=== PATIENT | female | born 1995 | race Caucasian/White ===

== ENCOUNTER 2019-09-21 14:15 | Outpatient (RCR) | payer BC, SELFPAY ==
[2019-09-21] MEDS: RHO(D) IMMUNE GLOBULIN 300 MCG SYRINGE IM (17:28)
== END 2019-12-20 23:59 | disposition home or self-care (01) ==
LOC: ANHLAB 14:15
PROVIDERS: Visit Provider Advanced Practice Midwife
DX: O20.0 Threatened abortion (principal); Z29.13 Encounter for prophylactic Rho(D) immune globulin; O36.0990 Maternal care for other rhesus isoimmunization, unspecified trimester, not applicable or unspecified; Z3A.00 Weeks of gestation of pregnancy not specified
CPT/HCPCS: 36415; 90384; 96372; J2790

== ENCOUNTER 2019-10-14 01:32 | Day surgery (SDC) | payer BC, SELFPAY ==
[2019-10-09 17:19] VITALS: BMI 29.9
[2019-10-14 10:02] VITALS: BP 117/64; PULSE 64; RESP 14; TEMP 36.8; O2SAT 100; BMI 29.7
[2019-10-14] MEDS: LACTATED RINGERS 1,000 ML 30 ML IV CONT (10:08)
--- NOTE | 2019-10-14 10:15 | WPDHPUPDATE1 ---
History and Physical Update Update Date/Time: 10/14/19 10:15 History and Physical has been reviewed, including an updated exam of the patient. There are NO changes in the patient's condition. Risks, benefits, and alternatives have been discussed and questions answered. Patient agrees to proceed with procedure.
--- NOTE | 2019-10-14 10:16 | P.PNAN_ITS ---
Anes - Initial Pre Proc Eval Procedure: Operation Date: 10/14/19 10:45 Proposed Procedures p Suction Dilation Curettage - Kamran Marcos MD Date/Time: 10/14/19 10:16 Surgeon: Kamran Marcos MD Pre Op Diagnosis: Missed AB Patient Data Age: 24 Gender: F Height: 5 ft 5 in Weight: 81 kg Last Vital Signs Temp 36.8 C 10/14/19 10:02 Pulse 64 10/14/19 10:02 Resp 14 10/14/19 10:02 BP 117/64 10/14/19 10:02 Pulse Ox 100 10/14/19 10:02 Allergies Allergy/AdvReac Type Severity Reaction Status Date / Time No Known Allergies Allergy Verified 10/14/19 09:39 Patient hx anesthesia problems: none Family hx anesthesia problems: none [facility] Past Medical History Medical History (Updated 10/14/19 @ 10:16 by Peña Laboy MD) Missed ab Overweight Anes - Eval Final PreProcedure Day of Procedure 10/14/19 10:16 Patient weight: overweight Heart: regular rate and rhythm Lungs: clear to auscultation Airway: Mallampati scale class II Neurological: alert and oriented Last oral intake: >/= 8 hours ASA classification: II Emergent: no Anesthetic plan: proceed Anesthesia type and monitoring: general GIVS and standard monitoring Informed Consent: The patient's anesthetic plan and its attendant risks and benefits were discussed with the patient/family/POA. Questions were solicited and answers provided to the satisfaction of the patient/family/POA.
[2019-10-14] MEDS: IBUPROFEN IV 800 MG/200 ML 800 MG/200 ML BAG 400 MG IVPB (10:25)
[2019-10-14 10:53] VITALS: BP 94/49; PULSE 70; RESP 20; O2SAT 98
--- NOTE | 2019-10-14 11:11 | P.OP_ITS ---
Procedure Note - Detailed Date of procedure: 10/14/19 Pre-op diagnosis: Missed AB Post-op diagnosis: same Procedure performed: Suction D&C Description of procedure: The patient was taken the operating room. She has prepped and draped in dorsal lithotomy position after induction of mac anesthesia. A speculum was placed in the vagina. The cervix was grasped with a tenaculum. The cervix was injected at 3 and 9:00 a.m. with 1% lidocaine. The cervix was dilated up to 8 mm using Eduardo dilators. An 8 curved plastic suction curette was then applied to the intrauterine cavity. All of the surfaces in the intrauterine cavity were curettage under VAC. A sharp medium-size curette was then used to curettage all the surfaces to confirmed the removal of all the products conception. When all surfaces for bleed to be clean the curette was r emoved. The suction curette was then reapplied to remove all the debris. The procedure was terminated. The tenaculum was removed. The speculum was removed. The patient tolerated the procedure well. She was taken recovery room in stable condition. Anesthesia: MAC Surgeon: Kamran Marcos MD Estimated blood loss (mL): 25 Drains: No Packing: No Pathology: yes Complications: No immediate complications Condition: stable Disposition: PACU Findings: Normal vulva vagina and cervix. The moderate amounts of products conception. 8 cm uterus.
--- NOTE | 2019-10-14 11:19 | SUR.PHASEII ---
1100: Patient stated she had some spotting and received Rhogam at the [facility] a few weeks ago. RN called OB since she couldn't find the documentation and they are sending a copy to us. Dr. Marcos is aware and said patient doesn't need another dose at this time.
[2019-10-14 11:20] VITALS: BP 97/56; PULSE 59
[2019-10-14 11:40] VITALS: BP 99/42; PULSE 55
== END 2019-10-14 11:50 | disposition home or self-care (01) ==
PROVIDERS: Visit Provider Obstetrics & Gynecology
PROC: (CPT 59820; principal; 2019-10-14 10:45)
DX: O02.1 Missed abortion (principal)
CPT/HCPCS: 59820; 36415; 86850; 86880; 86902; 88305; A9270; J1741; J2250; J2405; J2704; J7120

== ENCOUNTER 2022-01-04 14:12 | Outpatient (CLI) | payer OTHER, SELFPAY ==
[2022-01-04] MEDS: RHO(D) IMMUNE GLOBULIN 300 MCG/2 ML SYRINGE IM (18:44)
== END 2022-01-04 14:13 | disposition home or self-care (01) ==
LOC: ANHLAB 14:17
PROVIDERS: PCP Internal Medicine; Visit Provider Obstetrics & Gynecology
DX: O20.0 Threatened abortion (principal)
CPT/HCPCS: 36415; 85461; 90384; 96372; J2790

== ENCOUNTER 2022-02-23 19:25 | Outpatient (CLI) | payer OTHER, SELFPAY | END 2022-02-23 20:03 | disposition home or self-care (01) | LOC: ANHOBOP 19:29 → ANHOBPP 19:33 | PROVIDERS: PCP Internal Medicine; Visit Provider Obstetrics & Gynecology | DX: O41.8X90 Other specified disorders of amniotic fluid and membranes, unspecified trimester, not applicable or unspecified (principal); Z3A.00 Weeks of gestation of pregnancy not specified | CPT/HCPCS: 84112; 99199 ==

== ENCOUNTER 2022-04-20 18:53 | Outpatient (RCR) | payer OTHER, SELFPAY | END 2022-06-06 09:22 | disposition home or self-care (01) | LOC: ANHOBOP 18:53 | PROVIDERS: PCP Internal Medicine; Visit Provider Obstetrics & Gynecology | DX: O36.8190 Decreased fetal movements, unspecified trimester, not applicable or unspecified (principal); Z3A.00 Weeks of gestation of pregnancy not specified | CPT/HCPCS: 99199 ==

== ENCOUNTER 2022-05-07 17:57 | Observation (INO) | payer OTHER, SELFPAY ==
[2022-05-07 18:24] VITALS: BP 111/61; PULSE 86
[2022-05-07 18:34] LABS: Appearance Urine Clear (Clear); Bilirubin Urine Negative (Negative); Color Urine Yellow (Yellow); Glucose Urine UA Negative (Negative); Ketones Urine Trace mg/dL (Negative); Leukocyte Esterase Ur Negative LEU/UL (Negative); Nitrate Urine Negative (Negative); Protein Urine Negative (Negative); Specific Grav Ur >= 1.030 (1.001-1.035); Urobilinogen Urine 0.2 mg/dL (<2.0); pH Urine 5.5 (5.0-9.0)
[2022-05-07 18:41] LABS: Mucus Urine Rare /lpf; Squamous Epithelial Cell Urine Rare /hpf (Few)
[2022-05-07 18:50] LABS: Add Urine Microscopic? YES; Blood Urine Trace-Intact (Negative)
[2022-05-07 19:00] VITALS: BP 123/74; PULSE 89
--- NOTE | 2022-05-07 19:13 | PC.NURSE ---
Pt unsure if she wants to receive the terbutaline. Requested SVE first. Discussed cervix is closed and thick. Pt is going to discuss medication with her S.O.
--- NOTE | 2022-05-29 11:39 | P.PNOB_ITS ---
OB - Triage/Final Diagnosis Visit Information Comments/Additional reasons for admission: I have assessed the risk for this patient, Yojana Garcia, and determined that she would benefit from observation care. Evaluation Laboratory results: Laboratory Tests 05/07/22 18:26 Urine Color Yellow Urine Appearance Clear Urine pH 5.5 Ur Specific [place] >= 1.030 Urine Protein Negative Urine Glucose (UA) Negative Urine Ketones Trace Ur Blood (Man) Trace-intact Urine Nitrate Negative Urine Bilirubin Negative Urine Urobilinogen 0.2 Leukocyte Esterase Rfl Negative Urine RBC 3-5 H Urine WBC 4-6 H Ur Squamous Epith Cells Rare Urine Mucus Rare Final Diagnosis (1) Cramping affecting , antepartum: Code(s): O26.899 - Other specified related conditions, unspecified trimester; R10.9 - Unspecified abdominal pain Status: Acute
== END 2022-05-07 20:30 | disposition home or self-care (01) ==
PROVIDERS: Admitting Provider Obstetrics & Gynecology; PCP Internal Medicine; Visit Provider Obstetrics & Gynecology
DX: O26.892 Other specified pregnancy related conditions, second trimester (principal); R10.9 Unspecified abdominal pain; Z87.440 Personal history of urinary (tract) infections; O26.852 Spotting complicating pregnancy, second trimester; Z3A.26 26 weeks gestation of pregnancy
CPT/HCPCS: 81001; G0378; G0379

== ENCOUNTER 2022-05-17 11:54 | Outpatient (RCR) | payer BC, SELFPAY ==
[2022-05-17] MEDS: RHO(D) IMMUNE GLOBULIN 300 MCG/2 ML SYRINGE IM (18:23)
== END 2022-08-15 23:59 | disposition home or self-care (01) ==
LOC: ANHLAB 11:54
PROVIDERS: PCP Internal Medicine; Visit Provider Obstetrics & Gynecology
DX: Z29.13 Encounter for prophylactic Rho(D) immune globulin (principal); O36.0190 Maternal care for anti-D [Rh] antibodies, unspecified trimester, not applicable or unspecified; Z3A.00 Weeks of gestation of pregnancy not specified
CPT/HCPCS: 36415; 85461; 90384; 96372; J2790

== ENCOUNTER 2022-06-28 18:18 | Outpatient (CLI) | payer BC, SELFPAY ==
[2022-06-28] VITALS (11 sets, daily range): BP systolic 118; BP diastolic 62; PULSE 73–121; O2SAT 99–100
[2022-06-28] MEDS: TERBUTALINE SULFATE 1 MG/ML VIAL 0.25 MG SUB-Q (19:35)
--- NOTE | 2022-06-28 19:50 | PC.NURSE ---
SVE closed and posterior
[2022-06-28 19:52] LABS: Add Urine Microscopic? YES; Appearance Urine Cloudy (Clear); Bacteria Urine Trace /hpf; Bilirubin Urine Negative (Negative); Blood Urine Negative (Negative); Color Urine Yellow (Yellow); Glucose Urine UA Negative (Negative); Ketones Urine Negative (Negative); Leukocyte Esterase Ur Negative LEU/UL (Negative); Mucus Urine Rare /lpf; Nitrate Urine Negative (Negative); Protein Urine Negative (Negative); Specific Grav Ur 1.005 (1.001-1.035); Squamous Epithelial Cell Urine Occasional /hpf (Few); Urobilinogen Urine Negative mg/dL (<2.0); WBC Urine 0-3 /hpf
--- NOTE | 2022-06-28 20:23 | PC.NURSE ---
1916 Dr. Angelica odom 1918 Dr. Dominguez responded to oliva, informed of admission for DFM, tracing reviewed, contractions noted every 5-7 min not felt by patient, orders received for SVE, terbutaline X 1 dose, and UA. Will cont. to monitor and call with results. 2013 Dr. Angelica odom 2017 Dr. Dominguez responded to oliva, lab results reviewed, SVE reviewed closed and posterior, informed of no contraction noted on tracing. Orders recived to DC home with instruction to return to L&D and to keep appointment Saturday
== END 2022-06-28 22:00 | disposition home or self-care (01) ==
LOC: ANHOBOP 07-04 10:53 → ANHLDR 07-04 10:53
PROVIDERS: PCP Internal Medicine; Visit Provider Obstetrics & Gynecology
DX: O36.8130 Decreased fetal movements, third trimester, not applicable or unspecified (principal); Z3A.34 34 weeks gestation of pregnancy
CPT/HCPCS: 59025; 81001; 99199; J3105

== ENCOUNTER 2022-08-08 17:25 | Inpatient (IN) | payer BC, SELFPAY ==
[2022-08-08] VITALS (13 sets, daily range): BP systolic 124–153; BP diastolic 49–84; PULSE 66–87; TEMP 36.6–37.4; BMI 38.5
--- NOTE | 2022-08-08 17:43 | LDADM ---
This patient, Yojana Garcia, was admitted to Labor/Delivery/Recovery 103 on 08/08/22 at 17:25. Plans for labor, pain management and were discussed with patient. Patient/family oriented to hospital policies and general routines including ID bracelet, bed and alarms, visiting hours, pain management, procedures, bathroom and other care routines, personal items, smoking policy, room service/diet and guest tray routines, infant security routines, and visiting hours. Patient/Family are encouraged to report perceived risks to care and to ask questions if they do not understand what they are told or what they should do. See OBIX for further documentation.
[2022-08-08 18:30] LABS: Basophils Percent Auto 0.2 % (0.2-1.2); Eosinophils Percent Auto 0.3 % (0-4.4); Hematocrit 37.4 % (37.0-47.0); Hemoglobin 12.6 g/dL (12.0-15.0); Immature Granulocyte Absolute 0.05 K/mm3 (0.00-0.031); Immature Granulocyte Percent A 0.4 % (0-0.5); Lymphocytes Absolute Auto 1.88 K/mm3 (0.9-3.2); Lymphocytes Percent Auto 14.1 % (18.3-44.2); Mean Corpuscular HGB Conc 33.7 g/dl (32-36); Mean Corpuscular Hemoglobin 28.4 pg (26-34); Mean Corpuscular Volume 84.2 fl (80-100); Monocytes Absolute Auto 0.7 K/mm3 (0.1-0.6); Monocytes Percent Auto 5.3 % (2.6-8.5); Neutrophils Absolute Auto 10.6 K/mm3 (1.3-6.7); Neutrophils Percent Auto 79.7 % (45.5-73.1); Platelet Count Result 211 k/mm3 (150-375); Red Blood Count 4.44 M/mm3 (4.2-5.4); Red Cell Distribution Width 14.8 % (11.5-14.5); White Blood Count 13.3 K/mm3 (4.5-10.0)
[2022-08-08] MEDS: DINOPROSTONE 10 MG VAG INSERT VAGINAL (18:35)
[2022-08-09] VITALS (99 sets, daily range): BP systolic 77–153; BP diastolic 42–86; PULSE 55–139; RESP 16; TEMP 36.7–38.1; O2SAT 89–100
--- NOTE | 2022-08-09 05:34 | WPDANESEPP ---
Anes - Eval Pre Procedure Procedure: labor epidural Date/Time: 08/09/22 05:34 Surgeon: eleni Preop Diagnosis: pain during labor Pre Op Diagnosis: iol Patient Data Age: 26 Gender: F Height: 1.65 m Weight: 105 kg Last Vital Signs Temp 36.7 C 08/09/22 05:30 Pulse 67 08/09/22 04:13 BP 129/75 08/09/22 04:13 O2 Del Method Room Air 08/08/22 17:42 Allergies Allergy/AdvReac Type Severity Reaction Status Date / Time No Known Allergies Allergy Verified 07/11/22 13:40 Home Medications Medication Instructions Recorded Confirmed Type prenat.vits,sridevi,ead-sisq-geuqg 1 tablet PO HS 07/11/22 07/11/22 History Laboratory Tests 08/08/22 08/08/22 08/08/22 17:35 17:35 17:35 WBC 13.3 K/mm3 H K/mm3 (4.5-10.0) RBC 4.44 M/mm3 M/mm3 (4.2-5.4) Hgb 12.6 g/dL g/dL (12.0-15.0) Hct 37.4 % % (37.0-47.0) MCV 84.2 fl fl (80-100) MCH 28.4 pg pg (26-34) MCHC 33.7 g/dl g/dl (32-36) RDW 14.8 % H % (11.5-14.5) Plt Count 211 k/mm3 k/mm3 (150-375) MPV 11.0 fl H fl (7.4-10.4) Immature Gran % (Auto) 0.4 % % (0-0.5) Neut % (Auto) 79.7 % H % (45.5-73.1) Lymph % (Auto) 14.1 % L % (18.3-44.2) Dawson % (Auto) 5.3 % % (2.6-8.5) Eos % (Auto) 0.3 % % (0-4.4) Baso % (Auto) 0.2 % % (0.2-1.2) Lymph # (Auto) 1.88 K/mm3 K/mm3 (0.9-3.2) Dawson # (Auto) 0.7 K/mm3 H K/mm3 (0.1-0.6) Eos # (Auto) 0.0 K/mm3 K/mm3 (0-0.3) Baso # (Auto) 0.0 K/mm3 K/mm3 (0.0-0.1) Abs Immat Gran (auto) 0.05 K/mm3 H K/mm3 (0.00-0.031) Absolute Neuts (auto) 10.6 K/mm3 H K/mm3 (1.3-6.7) Absolute Nucleated RBC 0.0 K/mm3 K/mm3 (0.0-0.012) Nucleated RBC % 0.0 % % (0.0-0.2) RPR Pending Blood Type O Negative Antibody Screen Negative Patient hx anesthesia problems: none Family hx anesthesia problems: none Results Review: All pre-operative results and documents have been reviewed as part of the pre-operative evaluation. [facility] Past Medical History Medical History (Updated 08/09/22 @ 05:35 by Chelo Palmer CRNA) Intrauterine Missed ab Obesity Overweight Family History Family History (Updated 07/11/22 @ 13:43 by Richelle Land RN) Mother Vocal cord cancer Thyroid cancer Breast cancer in female Grandparent High cholesterol Hypertension Father Hypertension Social History Social History Smoking status: Never smoker Substance use: never Lack of Transportation: No Lack of Food: Never True Current Housing: I Have Housing Concerned About Future Housing: No Difficulty Paying Gas/Electric Bills: No Difficulty Paying for Meds: No Currently Unemployed: No Education: Associate Degree Difficulty w/ Childcare or Family Care: No Spiritual care concerns: No Exam Day of Procedure 08/09/22 05:34
[2022-08-09] MEDS: LACTATED RINGERS 1,000 ML 125 ML IV CONT ×2 (05:47→07:58)
[2022-08-09] MEDS: AMPICILLIN 2 GM/NS 100 ML 2 GM/100 ML BAG IVPB (05:48)
[2022-08-09] MEDS: OXYTOCIN 30 UNITS/NS 500 ML 30 UNITS/500 ML BAG 6 UNITS IV CONT (05:48)
--- NOTE | 2022-08-09 09:09 | WPDOBADMIT ---
Obstetrics - Admit Note Admission Note: record reviewed. Additions to the history and/or subsequent changes in the physical findings follow. 26 y/o G1 at 40 1/7 weeks here for induction of labor. Cervidil overnight, has been withdrawn. SROM at 0530, clear fluid. Feeling contractions, now feels better with epidural. GBS pos. AVSS NST reactive TOCO: contractions every 2-3 min ABD soft, nontender, gravid, vertex EXT nontender Cervix 5/100/-1. IUPC placed. Vertex. A: IUP at term, desiring induction of labor. GBS pos. P: Oxytocin, ampicillin. Anticipate .
[2022-08-09] MEDS: AMPICILLIN 1 GM/NS 50 ML 1 GM/50 ML BAG IVPB (09:46)
--- NOTE | 2022-08-09 12:13 | P.PCNOB_ITS ---
OB - Delivery Note Procedure Delivery date: 08/09/22 Procedure: Induction of labor with Excision of skin tag from left thigh Induction method: Per Cervidil Protocol Delivery augmentation: Pitocin Delivery monitor: External FHT, External Uterine and Internal Uterine Route of delivery: Laceration Description: Vaginal Delivery repair: vicryl (3-0) Specimen: Yes (Cord blood, skin tag) Quantitative Blood Loss (ml): 85 Anesthesia type: Epidural Disposition: PACU Complications: None Narrative: 26 y/o G1 at 40 1/7 weeks gestation who presented to the hospital for induction of labor. Cervidil was placed overnight. She had SROM with clear fluid. Cervidil was withdrawn and oxytocin was administered intravenously. She received ampicilin for GBS colonization. She received an epidural for pain control. Her labor progressed and her cervix dilated completely. She pushed with good effort and delivered the 's head to the perineum, followed by the body. A loose nuchal cord was reduced. The nose and mouth were bulb suctioned. After a delay, the cord was clamped and cut. The infant was handed off the field. Cord blood was collected. The placenta delivered spontaneously and was grossly normal in appearance. The usual 3 vessel cord was noted. A distal vaginal laceration was sustained. This was reapproximated using 3 0 Kirill ryl in the usual, running fashion. Excellent hemostasis resulted as did excellent reapproximation of the normal anatomy. Needle and instrument counts were correct. The patient was taken to recovery room in stable condition. The went to the nursery in stable condition. I was present and scrubbed for the entire delivery. Baby Date of : 08/09/22 Time of : 11:52 Weeks of gestation at delivery: 40 Infant gender: Male Weight (pounds): 6 Weight (ounces): 11 presentation: vertex position: Right Occiput Posterior Placenta delivery description: Spontaneous and Normal Configuration Cord Vessel Description: 3 Vessels, Nuchal Cord and Delayed Cord Clamping score one minute: 8 score five minutes: 9
[2022-08-09 12:14] LABS: Rapid Plasma Reagin Non-Reactive (NonReactive)
--- NOTE | 2022-08-09 12:17 | PM.OBDSVD ---
DS: Admitting Diagnosis Discharge Date 08/11/22 Admitting Diagnosis IUP at 40 1/7 weeks GBS colonization DS: Discharge Diagnosis Discharge Diagnosis (1) (normal spontaneous vaginal delivery): Code(s): O80 - Encounter for full-term uncomplicated delivery Status: Acute (2) GBS (group B Streptococcus carrier), +RV culture, currently : Code(s): O99.820 - Streptococcus B carrier state complicating Status: Acute OB - DS: Summary OB Procedures : None OB Procedures Intrapartum: Spontaneous Vag Delivery and GBS prophylaxis OB Procedures: : None Time Spent with Patient Time attestation: Total time spent providing and/or coordinating discharge services: DS: Data Data Completed and Pending Labs on day of discharge: Labs from last 24 hours 08/08/22 08/08/22 08/08/22 17:35 17:35 17:35 WBC 13.3 H RBC 4.44 Hgb 12.6 Hct 37.4 MCV 84.2 MCH 28.4 MCHC 33.7 RDW 14.8 H Plt Count 211 MPV 11.0 H Immature Gran % (Auto) 0.4 Neut % (Auto) 79.7 H Lymph % (Auto) 14.1 L [place] % (Auto) 5.3 Eos % (Auto) 0.3 Baso % (Auto) 0.2 Lymph # (Auto) 1.88 [place] # (Auto) 0.7 H Eos # (Auto) 0.0 Baso # (Auto) 0.0 Abs Immat Gran (auto) 0.05 H Absolute Neuts (auto) 10.6 H Absolute Nucleated RBC 0.0 Nucleated RBC % 0.0 RPR Non-reactive Blood Type O Negative Antibody Screen Negative Discharge Plan Discharge Attending physician on discharge: Pepe Dominguez Discharging Clinician: Pepe Dominguez Patient Disposition: Hospice - Home Activity: pelvic rest Diet: regular Discharge Instructions: Education: Mom and Baby Guide Given to: Mother Follow-Up: Call your delivering provider's office for an appointment to be seen in: 6 Week Mom and baby should come to the [facility] for the follow-up appointment. Appointment Date/Time: August 13, 2022 at 11:00 am What to expect at your follow-up visit: Blood Pressure Check Physical Assessment Call [phone] if you are unable to keep your appointment time. BREAST CARE: * Wear a snug supportive bra. * For engorgement discomfort: Breast Feeding: * Apply warm moist washcloths * Express milk as needed to relieve engorgement * Wear loose clothing Bottle Feeding: * May apply ice packs * For sore nipples: * Identify correct latch-on * Apply warm moist washcloths before and after nursing * Air dry nipples after nursing * May apply Lansinoh cream to nipples EPISIOTOMY/PERINEAL CARE: * Until bleeding stops, use your alvina bottle after urinating * Change your pad frequently throughout the day * You may take sitz baths several times a day (fill your bathtub with warm water and soak for 20 minutes.) Do NOT bathe in the water * No tub baths until seen by your physician - You may shower ACTIVITY: * Rest as much as possible. * Do not exercise or lift anything heavier than your baby (such as laundry or other children.) * Avoid stairs or driving as much as possible. * Do not put anything into the vagina. No douching, tampons, or sexual activity until seen by physician. NOTIFY PHYSICIAN IF YOU HAVE ANY QUESTIONS OR IF ANY OF THE FOLLOWING SYMPTOMS OCCUR: * If your episiotomy or incision becomes red, swollen, or more painful than what you have experienced in the hospital. * If your vaginal bleeding becomes foul smelling. * If your vaginal bleeding becomes more heavy than a period or if your bleeding changes from pink to bright red. However, you may pass an occasional walnut-sized clot once or twice for the first week . * If you experience a sharp, shooting pain in you calves. * If you discover a hard, reddened area on your breast or if you experience flu-like symptoms. DIET: * Eat regular, well-balanced meals. * Drink plenty of fluids daily. If breas
--- NOTE | 2022-08-09 14:24 | OBPPTRN ---
Patient transferred to post room #286 via wheelchair. Support person present. Oriented to unit, room, information board, rooming in, admission packet and security measures. Patient verbalizes understanding.
[2022-08-09] MEDS: ACETAMINOPHEN 325 MG TABLET 650 MG PO ×2 (15:11→21:12)
--- NOTE | 2022-08-09 15:30 | PC.NURSE ---
[id number] Introductions were made as patient is holding infant skin to skin in her labor room 103. is sleepy and reluctant. Mother works well with her with encouragement and education. Encouraged understanding of the benefits of skin to skin (unwrapping infant and placing vertically on her chest), responsive feeding and how to watch for early feeding signs, frequency of feeding on demand about every 8-12 times in 24 hours (every 2-3 hours), milk production, hand expression, signs of adequate intake/output and how to record on the feeding sheet. Reviewed good handwashing when or touching the breast/nipples to prevent infection. Mother demonstrates learning of hand expression. 1/2 teaspoon of the first milk was placed at 's mouth so it could be lapped up from the spoon. Mother voiced understanding of responsive feedings, stimulating with skin to skin, hand expressed colostrum, massage touch, talking to to encourage if it has been 2 -3 hours since the start of the last , to call if does not latch or there is discomfort with . Reported to the nursery RN. [phone] Mother works well with her with encouragement and education. Encouraged understanding of the benefits of skin to skin (unwrapping infant and placing vertically on her chest), responsive feeding and how to watch for early feeding signs, frequency of feeding on demand about every 8-12 times in 24 hours (every 2-3 hours), reviewed laid-back positioning, hand expression and encouraging infant to crawl to the breast. Infant crawls to the breast but doesn't attempt to latch yet. Worked with mother on the skill of hand expression and a few drops were fed to her infant. remains skin to skin with mother. Discussed signs of adequate intake/output and what is being assessed using the pie demonstration. Mother voiced understanding of responsive feedings, stimulating with skin to skin, hand expressed colostrum, massage touch, changing position, talking to infant to encourage if it has been 2 -3 hours since the start of the last , to call if infant does not latch or there is discomfort with . Primary RN is present and reported to.
[2022-08-09] MEDS: DOCUSATE SODIUM 100 MG CAPSULE PO (16:41)
[2022-08-10 05:36] LABS: Hematocrit 34.9 % (37.0-47.0); Hemoglobin 11.6 g/dL (12.0-15.0)
[2022-08-10 08:30] VITALS: BP 119/70; PULSE 82; RESP 16; TEMP 37.1; O2SAT 100
[2022-08-10 09:00] VITALS: PULSE 82; RESP 16; O2SAT 100
--- NOTE | 2022-08-10 09:03 | PM.OBPNVD ---
OB - PN: Subj Subjective Date/time seen: 08/10/22 09:03 Narrative: Pain OK. Would like circumcision for son. OB - PN: Obj Data Labs 08/10/22 04:48 Labs: Laboratory Results - last 24 hr 08/08/22 08/10/22 17:35 04:48 Hgb 11.6 L Hct 34.9 L RPR Non-reactive OB - PN A/P Plan Comments: A: PPD#1, doing well. P: Reviewed circ. Routine care. Exam Psych: Other: AVSS ABD soft, nontender, fundus firm EXT nontender
--- NOTE | 2022-08-10 09:14 | PC.NURSE ---
[id number] Consulted with patient to assess goal, needs and her experience so far. Mother states was crying last night and she bottle fed formula. Encouraged skin to skin, changing positioning, massage touch to stimulate infant to wake and feed. Mother states she has difficulty being assertive with her infant to wake and she doesn't like for the baby to cry. Mother's goals stated are to pump and feed her baby the bottle if her doesn't latch to the breast. Encouraged understanding of the benefits of skin to skin (unwrapping and placing vertically on her chest), responsive feeding and how to watch for early feeding signs, frequency of feeding on demand or pumping about every 8-12 times in 24 hours (every 2-3 hours) for good milk production. Mother acknowledges understanding of responsive feedings, stimulating with skin to skin, hand expressed colostrum, massage touch, talking to to encourage if it has been 2 -3 hours since the start of the last , to call if does not latch or there is discomfort with . Parents are bottle feeding formula and will call when she is ready to pump. Encouraged pumping soon since we are nearing 24 hours. Mother has been hand expressing. Risks and benefits were discussed so parents are informed.
--- NOTE | 2022-08-10 09:33 | WPDANLDPN2 ---
Anes-Prog Note L&D Date/Time: 08/10/22 09:33 Comfortable throughout: labor and delivery Neuraxial method: epidural Epidural/Spinal procedure site: clean & non-tender Neuro status: Neuro function grossly intact. Cardiovascular status: normal Respiratory status: normal Airway patency: baseline Mental status: baseline Post-Op hydration status: normal Vital Signs: Last Vital Signs Temp 36.7 C 08/09/22 19:30 Pulse 84 08/09/22 19:30 Resp 16 08/09/22 19:30 BP 129/71 08/09/22 19:30 Pulse Ox 99 08/09/22 14:35 O2 Del Method Room Air 08/09/22 14:30 Pain score (VAS): 0 I/O: Intake & Output 08/09/22 08/10/22 08/10/22 23:59 07:59 15:59 Intake Total 500 Balance 500 Patient feedback: Patient satisfied with anesthetic care.
[2022-08-10 19:31] VITALS: BP 114/70; PULSE 90; RESP 18; TEMP 36.4; O2SAT 99
[2022-08-10] MEDS: DOCUSATE SODIUM 100 MG CAPSULE PO (19:31)
[2022-08-10] MEDS: IBUPROFEN 600 MG TABLET PO (19:31)
[2022-08-11] MEDS: IBUPROFEN 600 MG TABLET PO (05:04)
[2022-08-11] MEDS: MULTIVIT/MIN/PREN/FOL AC/IRON TABLET 1 TAB PO (08:18)
[2022-08-11] MEDS: DOCUSATE SODIUM 100 MG CAPSULE PO (08:18)
[2022-08-11 08:30] VITALS: BP 105/52; PULSE 57; RESP 18; TEMP 36.4; O2SAT 100
--- NOTE | 2022-08-11 10:31 | PM.OBPNVD ---
OB - PN: Subj Subjective Date/time seen: 08/11/22 10:31 Narrative: Pain OK. Baby Rh Neg. Would like to go home. OB - PN: Obj Data Labs 08/10/22 04:48 OB - PN A/P Plan Comments: A: PPD#2, doing well. P: Home to f/u 6 weeks. Exam Psych: Other: AVSS ABD soft, nontender, fundus firm EXT nontender
--- NOTE | 2022-08-11 11:02 | PC.NURSE ---
Patient viewed the discharge video Mother & Baby Care, The First Two Weeks . Patient was given the opportunity and encouraged to ask questions. Patient verbalized understanding of information shared and has been given the mother/baby guide for home reference.
[2022-08-11] MEDS: TETANUS,DIPHTHERIA,AC PERTUSSIS ADULT (0.5 ML) BOOSTRIX IM (11:43)
[2022-08-13 11:40] VITALS: BP 140/86; PULSE 94; RESP 20; TEMP 36.8; O2SAT 99
== END 2022-08-11 14:02 | disposition home or self-care (01) | DRG 807 ==
LOC: ANHLDR 08-09 12:18 → ANHOB2 08-09 14:32
PROVIDERS: Admitting Provider Obstetrics & Gynecology; PCP Internal Medicine; Visit Provider Obstetrics & Gynecology
DX: O99.824 Streptococcus B carrier state complicating childbirth (principal); Z37.0 Single live birth; Z3A.40 40 weeks gestation of pregnancy; O36.8330 Maternal care for abnormalities of the fetal heart rate or rhythm, third trimester, not applicable or unspecified; O69.81X0 Labor and delivery complicated by cord around neck, without compression, not applicable or unspecified; O99.72 Diseases of the skin and subcutaneous tissue complicating childbirth; L91.8 Other hypertrophic disorders of the skin; Z23 Encounter for immunization
CPT/HCPCS: 36415; 85014; 85018; 85025; 86592; 86850; 86900; 86901; 88305; 90471; 90686; 90715; A9270; G0008; J0290; J2590; J2795; J7120

== ENCOUNTER 2025-03-23 10:02 | Outpatient (CLI) | payer BC, SELFPAY ==
--- OUTSIDE RECORDS SUMMARY | 2025-03-23 10:17 | XMS_ITS | Clinical Summary ---
Author Organization [facility] Address [address] [place] [id number] Care Team Providers Care Pigment Processor Name Role Phone Ramón Alvarado MD Primary Care Provider [phone] Allergies No known active allergies Medications No known medications Social History Tobacco Use Types Packs/Day Years Used Date Smoking Tobacco: Never Passive Smoke Exposure: Never Smokeless Tobacco: Never Tobacco Cessation:Counseling Given: Not Answered Comments Unknown Sex and Gender Information Value Date Recorded Sex Assigned at Not on file Legal Sex Female 3:52 PM CDT Gender Identity Not on file Sexual Orientation Not on file Last Filed Vital Signs Vital Sign Reading Time Taken Comments Blood Pressure 130/66 03/15/2024 6:21 PM CDT Pulse 88 03/15/2024 6:21 PM CDT Temperature 36.7 C (98 F) 03/15/2024 6:21 PM CDT Respiratory Rate 18 03/15/2024 6:21 PM CDT Oxygen Saturation 99% 03/15/2024 6:21 PM CDT Inhaled Oxygen Concentration - - Weight 72.6 kg (160 lb) 03/15/2024 4:06 PM CDT Height 170.2 cm (5' 7) 03/15/2024 4:06 PM CDT Body Mass Index 25.06 03/15/2024 4:06 PM CDT Plan of Treatment Health Maintenance Due Date Last Done Comments Annual Physical 1997 Hepatitis C 2012 Hepatitis B Vaccines (1 of 3 - 19+ 3-dose series) 2013 Cervical Cancer Screening Pa p Smear (Age 30 to 64) Every 3 Years 12/28/2023 12/27/2020 COVID-19 Vaccine (2023-2 5 season) 2024 09/18/2021, 05/28/2021 Cervical Cancer Screening Pa p with HPV Testing (Age 30 to 64) Every 5 Years 2024 12/27/2020 Cervical Cancer Screening wi th HPV 2024 DTaP, Tdap and Td Vaccines ( 2 - Td or Tdap) 08/11/2032 08/11/2022 HPV Vaccines Aged Out No longer eligi ble based on patient's age to complete this topic Meningococcal B Vaccine Aged Out No l onger eligible based on patient's age to complete this topic Meningococcal Vaccine Aged Out No tanisha bret eligible based on patient's age to complete this topic Pneumococcal Vaccine: Pediatrics (0 to 5 Years) and At-Risk Patients (6 to 49 Years) Aged Out No longer eligible b ased on patient's age to complete this topic RSV Immunizations Under 20 Months Aged Out No longer eligible b ased on patient's age to complete this topic Insurance [facility] Care Teams Pigment Processor Relationship Specialty Start [place] [address] [place] [id number] PCP - General INTERNAL MEDICINE 03/15/24
--- OUTSIDE RECORDS SUMMARY | 2025-03-23 10:17 | XMS_ITS | Clinical Summary ---
Author Organization [facility] Address [address] [place] [address] Care Team Providers Care Fha Underwriter Name Role Phone Ramón Alvarado MD Primary Care Provider + [phone] Albino Hartman MD Unavailable [phone] Allergies No known active allergies Medications aluminum hydrox-magnesium carb 254-237.5 mg/5 mL suspensionIndica tions:Dyspepsia, gastroesophageal reflux disease,Heartbur n,Hiatal Hernia with Reflux Esophagitis Take 10 mL by mouth 4 (four) times a day as needed (as needed for gas,heartburn, or indigestion) Take 10 mL by mouth 4 (four) times a day as needed (bloating, stomach upset, indigestion, heartburn or spasm). Repeat or increase dose if symptoms are not completely relieved. Maximum dose 80 mLper 24 hours - Refer to package directions Indications: indigestion, gastroesophageal reflux disease, heartburn, hiatal hernia with acid reflux esophagus inflammation. If not available by prescription or covered by your insurance plan, you may purchase Gaviscon pwti-ooy-gzchrfw. 355 mL 02/09/20 23 Active HYDROcodone-acet aminophen (NORCO) 5-325 mg per tabletIndication s:Pain Take 1-2 tablets by mouth every 4 (four) hours as needed for pain 25 tablet 02/09/20 23 Active polyethylene glycol (MIRALAX) 17 gram/dose powder Take 17 g by mouth daily As needed for constipation or if no bowel movement for over 1 day. May buy ltsk-drf-zbwnqcy if inadequate coverage by insurance plan. Take with 16 oz of additional water minimum. 238 g 2 02/09/20 Active ondansetron (ZOFRAN) 4 mg tabletIndication s:Prevention of Post-Operative Nausea and Vomiting Take 1-2 tablets (4-8 mg total) by mouth every 6 (six) hours as needed for nausea or vomiting 20 tablet 02/09/20 Active hyoscyamine (LEVSIN) 0.125 mg SL tabletIndication s:Urinary Incontinence Take 1 tablet (0.125 mg total) by mouth every 4 (four) hours as needed for cramping 30 tablet 02/09/20 Active Active Problems Problem Noted Date Diagnosed Date Calculus of gallbladder with cholecystitis without biliary obstruction 01/21/2023 Surgical History Surgery Date Site/Laterality Comments DILATION AND CURETTAGE OF UTERUS Medical History Medical History Date Comments Motion sickness Social History Tobacco Use Types Packs/Day Years Used Date Smoking Tobacco: Never Tobacco Cessation:Counseling Given: Not Answered AUDIT-C Answer Date Recorded Q1: How often do you have a drink containing alc ohol? Monthly or less 01/29/2023 Q2: How many drinks containi ng alcohol do you have on a typical day when you are drinking? 1 or 2 01/29/2023 Q3: How often do you have si x or more drinks on one occasion? Never 01/29/2023 Personal Safety Answer Date Recorded Have you ever been in or are you currently in a harmful physical or emotional relationship or is someone making you feel afraid or unsafe? Denies 02/08/2023 Comments No Sex and Gender Information Value Date Recorded Sex Assigned at Not on file Legal Sex Female 11:09 AM CDT Gender Identity Not on file Sexual Orientation Not on file Obstetrics History Last Filed Vital Signs Vital Sign Reading Time Taken Comments Blood Pressure 97/54 02/08/2023 3:35 PM CDT Pulse 85 02/08/2023 3:35 PM CDT Temperature 36.3 C (97.3 F) 02/08/2023 2:09 PM CDT Respiratory Rate 16 02/08/2023 3:35 PM CDT Oxygen Saturation 95% 02/08/2023 3:35 PM CDT Inhaled Oxygen Concentration - - Weight 81 kg (178 lb 9.2 oz) 02/08/2023 10:15 AM CDT Height 165.1 cm (5' 5) 02/08/2023 10:15 AM CDT Body Mass Index 29.72 02/08/2023 10:15 AM CDT Plan of Treatment Health Maintenance Due Date Last Done Comments Cervical Cancer Screening 1994 Depression Screening 1994 Hepatitis C Screening 1994 Varicella Vaccines (1 of 2 - 13+ 2-dose series) 2007 Hepatitis B Screening 2012 Regular Well Visit/Exam 18-64 2012 Covid-19 Vaccine (3 - 2023-2 5 season) 2024 09/18/2021, 05/28/2021 Influenza Vaccine (Season Ended) 2025 08/11/2022 DTaP/Tdap/Td Vaccine (2 - Td or Tdap) 08/11/2032 08/11/2022 HPV Vaccines Aged Out No longer eligi ble based on patient's age to complete this topic Pneumococcal vaccine <65 Aged Out No longer eligible based on patient's age to complete this topic Medical Devices Implanted Type Area Coffee Weigher Device Identifier Shelf Expiration Date Model / Serial / Lot PeakStream Medical HexAirbot Weck Hem-O-Wally Ligate Nonabsorbable Cartridge Large Chevron Heart Latex Free [id number] - [id number] Implanted:Qty: 1 on 02/08/2023 by Albino Hartman MD at [facility] N/A: Abdomen [employer] Inc [id number] / / Insurance [facility] ACCESS CHOICE Care Teams Fha Underwriter Relationship Specialty Start Date End Date Ramón Alvarado MD PCP - General Internal Medicine 01/29/23 Albino Hartman MD Consulting Physician General Surgery 02/08/23
--- OUTSIDE RECORDS SUMMARY | 2025-03-23 10:17 | XMS_ITS | Referral Summary ---
Author Organization [facility] Address [address] [place] [address] Care Team Providers Care Digital Marketing Consultant Name Role Phone Ramón Alvarado MD Primary Care Provider + [phone] Albino Hartman MD Unavailable [phone] Allergies No known active allergies Medications aluminum [...] your insurance plan, you may purchase Gaviscon aazn-gfg-lepqunf. 355 mL 02/09/20 23 Active HYDROcodone-acet aminophen (NORCO) 5-325 mg per tabletIndication s:Pain Take 1-2 tablets by mouth every 4 (four) hours as needed for pain 25 tablet 02/09/20 23 Active polyethylene glycol (MIRALAX) 17 gram/dose powder Take 17 g by mouth daily As needed for constipation or if no bowel movement for over 1 day. May buy ekjj-bmz-qwlzfts if inadequate coverage by insurance plan. Take [...] gallbladder with cholecystitis without biliary obstruction 01/21/2023 Social History Tobacco Use Types Packs/Day Years [...] 02/08/2023 10:15 AM CDT Plan of Treatment Not on file Medical Devices Implanted Type Area Service Desk Agent Device Identifier Shelf Expiration Date Model / Serial / Lot [employer]flex Medical Inc Weck Hem-O-Wally Ligate Nonabsorbable Cartridge Large Chevron Heart Latex Free [id number] - [id number] Implanted:Qty: 1 on 02/08/2023 by Albino Hartman MD at [facility] N/A: Abdomen [employer] [id number] / / Insurance [facility] ACCESS CHOICE Care Teams Digital Marketing Consultant Relationship Specialty Start Date End Date Ramón Alvarado MD PCP - General Internal Medicine 01/29/23 Albino Hartman MD Consulting Physician General Surgery 02/08/23
--- OUTSIDE RECORDS SUMMARY | 2025-03-23 10:17 | XMS_ITS | Clinical Summary ---
Author Organization [facility] Address [address] [place] [address] Care Team Providers Care Brand Engineer Name Role Phone Elsa Knight MD Primary Care Prov ider Allergies No known active allergies Medications No known medications Active Problems Problem Noted Date Diagnosed Date Irritable bowel syndrome with diarrhea 4 Encounters Date Type Department Care Team Description 03/09/2025 External Device Data STL ABSTRACTION Provider, Abstract from Last 3 Months Family History Medical History Relation Name Comments Hypertension Father Breast Cancer Mother Cancer Mother thyroid, throat , Hypertension Paternal Grandfather Relation Name Status Comments Father Mother Paternal Grandfather Social History Tobacco Use Types Packs/Day Years Used Date Smoking Tobacco: Never Smokeless Tobacco: Never Tobacco Cessation:Counseling Given: Not Answered Alcohol Use Standard Drinks/Week Comments Yes 0 (1 standard drink = 0.6 oz pur e alcohol) less than monthly Comments Unknown Sex and Gender Information Value Date Recorded Sex Assigned at Not on file Legal Sex Female 5:51 PM CDT Gender Identity Not on file Sexual Orientation Not on file Last Filed Vital Signs Vital Sign Reading Time Taken Comments Blood Pressure 132/88 06/30/2024 10:37 AM CDT Pulse 95 06/30/2024 10:37 AM CDT Temperature - - Respiratory Rate - - Oxygen Saturation 97% 06/30/2024 10:37 AM CDT Inhaled Oxygen Concentration - - Weight 98.4 kg (217 lb) 06/30/2024 10:37 AM CDT Height 165.1 cm (5' 5) 06/30/2024 10:37 AM CDT Body Mass Index 36.11 06/30/2024 10:37 AM CDT Plan of Treatment Health Maintenance Due Date Last Done Comments DTAP/TDAP/TD VACCINES (1 - Tdap) 2013 HEPATITIS B VACCINES (1 of 3 - 19+ 3-dose series) 2013 HPV/Cotest (21-29) 2015 CERVICAL CANCER SCREENING 2024 HPV/Cotest (30-65) 2024 PAP SMEAR 2024 Preventative Visit- Commercial 09/09/2024 06/30/2024 INFLUENZA VACCINE (#1) 2025 06/30/2024 HPV VACCINES Aged Out No longer eligi ble based on patient's age to complete this topic Insurance [employer] [id number] Care Teams Brand Engineer Relationship Specialty Start Date End Date Elsa Knight MD [address] [place] [phone] PCP - General Family Practice 06/30/24
[2025-03-23 11:17] LABS: Beta HCG Quantitative 175.93 mIU/ML
== END 2025-03-23 10:03 | disposition home or self-care (01) ==
LOC: ANHLAB 10:06
PROVIDERS: Visit Provider Obstetrics & Gynecology
DX: O09.299 Supervision of pregnancy with other poor reproductive or obstetric history, unspecified trimester (principal); Z3A.00 Weeks of gestation of pregnancy not specified
CPT/HCPCS: 36415; 84144; 84702

== ENCOUNTER 2025-03-25 07:09 | Outpatient (CLI) | payer BC, SELFPAY ==
--- OUTSIDE RECORDS SUMMARY | 2025-03-25 07:12 | XMS_ITS | Referral Summary ---
Author Organization [facility] Address [address] [place] [address] Care Team Providers Care Tumbler Dyeing Machine Operator Name Role Phone Ramón Alvarado MD Primary Care Provider + [phone] Albino Hartman MD Unavailable [phone] Allergies No known active allergies Medications aluminum [...] your insurance plan, you may purchase Gaviscon oqvz-lqu-bxzuvem. 355 mL 02/09/20 23 Active HYDROcodone-acet aminophen (NORCO) 5-325 mg per tabletIndication s:Pain Take 1-2 tablets by mouth every 4 (four) hours as needed for pain 25 tablet 02/09/20 23 Active polyethylene glycol (MIRALAX) 17 gram/dose powder Take 17 g by mouth daily As needed for constipation or if no bowel movement for over 1 day. May buy qxjp-rwp-uujtbfl if inadequate coverage by insurance plan. Take [...] on file Medical Devices Implanted Type Area Product Director Device Identifier Shelf Expiration Date Model / Serial / Lot Teleflex Medical Inc Weck Hem-O-Wally Ligate Nonabsorbable Cartridge Large Chevron Heart Latex Free [id number] - [id number] Implanted:Qty: 1 on 02/08/2023 by Albino Hartman MD at [facility] N/A: Abdomen [employer] [id number] / / Insurance [facility] ACCESS CHOICE Care Teams Tumbler Dyeing Machine Operator Relationship Specialty Start Date End Date Ramón Alvarado MD PCP - General Internal Medicine 01/29/23 Albino Hartman MD Consulting Physician General Surgery 02/08/23
--- OUTSIDE RECORDS SUMMARY | 2025-03-25 07:12 | XMS_ITS | Clinical Summary ---
Author Organization [facility] Address [address] [place] [address] Care Team Providers Care Cath Lab Technologist Name Role Phone Ramón Alvarado MD Primary Care Provider + [phone] Albino Hartman MD Unavailable [phone] Allergies No known active allergies Medications aluminum [...] your insurance plan, you may purchase Gaviscon nsoi-kvo-dtcssux. 355 mL 02/09/20 23 Active HYDROcodone-acet aminophen (NORCO) 5-325 mg per tabletIndication s:Pain Take 1-2 tablets by mouth every 4 (four) hours as needed for pain 25 tablet 02/09/20 23 Active polyethylene glycol (MIRALAX) 17 gram/dose powder Take 17 g by mouth daily As needed for constipation or if no bowel movement for over 1 day. May buy vhhc-egr-semltec if inadequate coverage by insurance plan. Take [...] this topic Medical Devices Implanted Type Area Landscape Manager Device Identifier Shelf Expiration Date Model / Serial / Lot [employer] Medical testbirds Weck Hem-O-Wally Ligate Nonabsorbable Cartridge Large Chevron Heart Latex Free [id number] - [id number] Implanted:Qty: 1 on 02/08/2023 by Albino Hartman MD at [facility] N/A: Abdomen [employer] [id number] / / Insurance [facility] ACCESS CHOICE Care Teams Cath Lab Technologist Relationship Specialty Start Date End Date Ramón Alvarado MD PCP - General Internal Medicine 01/29/23 Albino Hartman MD Consulting Physician General Surgery 02/08/23
--- OUTSIDE RECORDS SUMMARY | 2025-03-25 07:12 | XMS_ITS | Clinical Summary ---
Author Organization [facility] Address [address] [place] [address] Care Team Providers Care Criminal Investigator Name Role Phone Ramón Alvarado MD Primary Care Provider Allergies No known active allergies Medications No [...] patient's age to complete this topic Insurance [facility] Care Teams Criminal Investigator Relationship Specialty Start Date End Date Ramón [place] [address] [place] [phone] PCP - General INTERNAL MEDICINE 03/15/24
--- OUTSIDE RECORDS SUMMARY | 2025-03-25 07:12 | XMS_ITS | Encounter Summary ---
Author Organization [facility] Address [address] [place] [address] Care Team Providers Care Senior Clinical Research Associate Name Role Phone Elsa Knight MD Primary Care Prov ider Encounter Details Date Type Department Care Team (Late st Contact Info) Description 03/23/2025 External Device Data STL ABSTRACTION Provider, Abstract NO ADDRESS ON FILE Social History Tobacco Use Types Packs/Day Years Used Date Smoking Tobacco: Never Smokeless Tobacco: Never Alcohol Use Standard Drinks/Week Comments Yes 0 (1 standard drink = 0.6 oz pur e alcohol) less than monthly Comments Unknown Sex and Gender Information Value Date Recorded Sex Assigned at Not on file Legal Sex Female 5:51 PM CDT Gender Identity Not on file Sexual Orientation Not on file documented as of this encounter Plan of Treatment Not on file documented as of this encounter Visit Diagnoses Not on filedocumented in this encounter Care Teams Senior Clinical Research Associate Relationship Specialty Start Date End Date Elsa Knight MD [address] [place] [phone] PCP - General Family Practice 06/30/24 documented as of this encounter
--- OUTSIDE RECORDS SUMMARY | 2025-03-25 07:12 | XMS_ITS | Clinical Summary ---
Author Organization [facility] Address [address] [place] [address] Care Team Providers Care Psychiatric Clinical Nurse Specialist Name Role Phone Elsa Knight MD Primary Care Prov ider Allergies No known active allergies Medications No known medications Active Problems Problem Noted Date Diagnosed Date Irritable bowel syndrome with diarrhea 4 Encounters Date Type Department Care Team Description 03/23/2025 External Device Data STL ABSTRACTION Provider, Abstract 03/09/2025 External Device Data STL ABSTRACTION Provider, [...] patient's age to complete this topic Insurance Member Subscriber Plan / Payer (Ef fective 2024-Present) Name:XAVI GARCIA Relation to Subscriber:Spouse Name:YASIR GARCIA Date of :1992 Address: [address] [place] [address] Payer ID:[id number] (NAIC) Type:HMO Address: [facility] [address] [place] [id number] Care Teams Psychiatric Clinical Nurse Specialist Relationship Specialty Start Date End Date Elsa Knight MD [address] [place] [phone] PCP - General Family Practice 06/30/24
[2025-03-25 08:34] LABS: Beta HCG Quantitative 186.91 mIU/ML
== END 2025-03-25 07:10 | disposition home or self-care (01) ==
LOC: ANHLAB 07:10
PROVIDERS: Visit Provider Obstetrics & Gynecology
DX: O09.299 Supervision of pregnancy with other poor reproductive or obstetric history, unspecified trimester (principal)
CPT/HCPCS: 36415; 84702

== ENCOUNTER 2025-03-30 10:11 | Outpatient (CLI) | payer BC, SELFPAY ==
--- OUTSIDE RECORDS SUMMARY | 2025-03-30 10:14 | XMS_ITS | Clinical Summary ---
Author Organization [facility] Address [address] [place] [address] Care Team Providers Care Director Hair Name Role Phone Ramón Alvarado MD Primary Care Provider [phone] Allergies No known active allergies Medications No [...] of 3 - 19+ 3-dose series) 2013 HPV Vaccines (1 - 3-dose SCD M series) 2021 Cervical Cancer Screening Pa p Smear (Age 30 to 64) Every 3 Years 12/28/2023 12/27/2020 COVID-19 Vaccine (3 - 2023-2 5 season) 2024 09/18/2021, 05/28/2021 Cervical Cancer Screening Pa p with HPV Testing (Age 30 to 64) Every 5 Years 2024 12/27/2020 Cervical Cancer Screening wi th HPV 2024 DTaP, Tdap and Td Vaccines ( 2 - Td or Tdap) 08/11/2032 08/11/2022 Meningococcal B Vaccine Aged Out No l [...] age to complete this topic Insurance [facility] Care Teams Director Hair Relationship Specialty Start Date End Date Ramón Alvarado MD [address] [place] [phone] PCP - General INTERNAL MEDICINE 03/15/24
--- OUTSIDE RECORDS SUMMARY | 2025-03-30 10:14 | XMS_ITS | Clinical Summary ---
Author Organization [facility] Address [address] [place] [address] Care Team Providers Care Wire Weaver Name Role Phone Ramón Alvarado MD Primary Care Provider + [phone] Albino Hartman MD Unavailable [phone] Allergies No known active allergies Medications aluminum [...] your insurance plan, you may purchase Gaviscon vukw-hij-pekrwpj. 355 mL 02/09/20 23 Active HYDROcodone-acet aminophen (NORCO) 5-325 mg per tabletIndication s:Pain Take 1-2 tablets by mouth every 4 (four) hours as needed for pain 25 tablet 02/09/20 23 Active polyethylene glycol (MIRALAX) 17 gram/dose powder Take 17 g by mouth daily As needed for constipation or if no bowel movement for over 1 day. May buy usmt-xvg-cjxsyrk if inadequate coverage by insurance plan. Take [...] this topic Medical Devices Implanted Type Area Seal Skinner Device Identifier Shelf Expiration Date Model / Serial / Lot [employer]stream[employer] Weck Hem-O-Wally Ligate Nonabsorbable Cartridge Large Chevron Heart Latex Free [id number] - [id number] Implanted:Qty: 1 on 02/08/2023 by Albino Hartman MD at [facility] N/A: Abdomen [employer] [id number] / / Insurance [facility] ACCESS CHOICE Care Teams Wire Weaver Relationship Specialty Start Date End Date Ramón Alvarado MD PCP - General Internal Medicine 01/29/23 Albino Hartman MD Consulting Physician General Surgery 02/08/23
--- OUTSIDE RECORDS SUMMARY | 2025-03-30 10:14 | XMS_ITS | Referral Summary ---
Author Organization [facility] Address [address] [place] [address] Care Team Providers Care Real Estate Appraiser Supervisor Name Role Phone Ramón Alvarado MD Primary Care Provider + [phone] Albino Hartman MD Unavailable [phone] Allergies No known active allergies Medications aluminum [...] your insurance plan, you may purchase Gaviscon deto-sdp-fzmbcyn. 355 mL 02/09/20 23 Active HYDROcodone-acet aminophen (NORCO) 5-325 mg per tabletIndication s:Pain Take 1-2 tablets by mouth every 4 (four) hours as needed for pain 25 tablet 02/09/20 23 Active polyethylene glycol (MIRALAX) 17 gram/dose powder Take 17 g by mouth daily As needed for constipation or if no bowel movement for over 1 day. May buy txbw-yyw-kewtegq if inadequate coverage by insurance plan. Take [...] on file Medical Devices Implanted Type Area Leather Belt Shaper Device Identifier Shelf Expiration Date Model / Serial / Lot [employer]flex Medical Inc Weck Hem-O-Wally Ligate Nonabsorbable Cartridge Large Chevron Heart Latex Free [id number] - [id number] Implanted:Qty: 1 on 02/08/2023 by Albino Hartman MD at [facility] N/A: Abdomen [employer] [id number] / / Insurance [facility] ACCESS CHOICE Care Teams Real Estate Appraiser Supervisor Relationship Specialty Start Date End Date Ramón Alvarado MD PCP - General Internal Medicine 01/29/23 Albino Hartman MD Consulting Physician General Surgery 02/08/23
[2025-03-30 11:20] LABS: Beta HCG Quantitative 203.14 mIU/ML
== END 2025-03-30 10:12 | disposition home or self-care (01) ==
LOC: ANHLAB 10:12
PROVIDERS: Visit Provider Obstetrics & Gynecology
DX: R79.89 Other specified abnormal findings of blood chemistry (principal)
CPT/HCPCS: 36415; 84702

== ENCOUNTER 2025-04-01 17:22 | Outpatient (RCR) | payer BC, SELFPAY ==
[2025-04-01] MEDS: RHO(D) IMMUNE GLOBULIN 300 MCG/2 ML SYRINGE IM (17:37)
== END 2025-06-30 23:59 | disposition home or self-care (01) ==
LOC: ANHLAB 17:22
PROVIDERS: Visit Provider Nurse Practitioner Family
DX: O03.9 Complete or unspecified spontaneous abortion without complication (principal); Z67.91 Unspecified blood type, Rh negative
CPT/HCPCS: 36415; 85461; 86850; 86900; 86901; 90384; J2790

== ENCOUNTER 2025-04-07 15:21 | Outpatient (CLI) | payer BC, SELFPAY ==
--- OUTSIDE RECORDS SUMMARY | 2025-04-07 15:25 | XMS_ITS | Referral Summary ---
Author Organization [facility] Address [address] [place] [address] Care Team Providers Care Internet Specialist Name Role Phone Ramón Alvarado MD Primary Care Provider + [phone] Albino Hartman MD Unavailable [phone] Allergies No known active allergies Medications aluminum [...] your insurance plan, you may purchase Gaviscon xveb-jsh-mttqtjz. 355 mL 02/09/20 23 Active HYDROcodone-acet aminophen (NORCO) 5-325 mg per tabletIndication s:Pain Take 1-2 tablets by mouth every 4 (four) hours as needed for pain 25 tablet 02/09/20 23 Active polyethylene glycol (MIRALAX) 17 gram/dose powder Take 17 g by mouth daily As needed for constipation or if no bowel movement for over 1 day. May buy hpho-wot-kgzqvos if inadequate coverage by insurance plan. Take [...] on file Medical Devices Implanted Type Area Acetone Recovery Worker Device Identifier Shelf Expiration Date Model / Serial / Lot [employer]flex Medical Inc Weck Hem-O-Wally Ligate Nonabsorbable Cartridge Large Chevron Heart Latex Free [id number] - [id number] Implanted:Qty: 1 on 02/08/2023 by Albino Hartman MD at [facility] N/A: Abdomen [employer] Inc [id number] / / Insurance [facility] ACCESS CHOICE Care Teams Internet Specialist Relationship Specialty Start Date End Date Ramón Alvarado MD PCP - General Internal Medicine 01/29/23 Albino Hartman MD Consulting Physician General Surgery 02/08/23
--- OUTSIDE RECORDS SUMMARY | 2025-04-07 15:25 | XMS_ITS | Clinical Summary ---
Author Organization [facility] Address [address] [place] [address] Care Team Providers Care Accounts Receivable Coordinator Name Role Phone Elsa Knight MD Primary Care Prov ider Allergies No known active allergies Medications No known medications Active Problems Problem Noted Date Diagnosed Date Irritable bowel syndrome with diarrhea 4 Encounters Date Type Department Care Team Description 03/24/2025 External Device Data STL ABSTRACTION Provider, Abstract 03/23/2025 External Device Data STL ABSTRACTION Provider, [...] Health Maintenance Due Date Last Done Comments HPV VACCINES (1 - 3-dose series) 2009 DTAP/TDAP/TD VACCINES (1 - Tdap) 2013 HEPATITIS B VACCINES (1 of 3 - 19+ 3-dose series) 08/09 HPV/Cotest (21-29) 2015 CERVICAL CANCER SCREENING 2024 HPV/Cotest (30-65) 2024 PAP SMEAR 2024 Preventative Visit- Commercial 09/09/2024 06/30/2024 INFLUENZA VACCINE (#1) 2025 06/30/2024 Insurance [employer] [facility] Intrinsity [id number] Member Subscriber Plan / Payer (Ef fective 2024-Present) Name:YOJANA GARCIA Relation to Subscriber:Spouse Name:TARI GARCIAONY Date of :1992 Address: [facility] [place] [address] Payer ID:[id number] (NAIC) Type:O Address: [facility] [id number] [place] [id number] Care Teams Accounts Receivable Coordinator Relationship Specialty Start Date End Date Elsa Knight MD [address] [place] [phone] PCP - General Family Practice 06/30/24
--- OUTSIDE RECORDS SUMMARY | 2025-04-07 15:25 | XMS_ITS | Clinical Summary ---
Author Organization [facility] Address [address] [place] [address] Care Team Providers Care Pipe Threader Name Role Phone Ramón Alvarado MD Primary Care Provider [phone] Allergies No known active allergies Medications No [...] patient's age to complete this topic Insurance [employer] Care Teams Pipe Threader Relationship Specialty Start Date End Date Ramón Alvarado MD [address] [place] [address] PCP - General INTERNAL MEDICINE 03/15/24
--- OUTSIDE RECORDS SUMMARY | 2025-04-07 15:25 | XMS_ITS | Clinical Summary ---
Author Organization [facility] Address [address] [place] [address] Care Team Providers Care Professor Of Communication Arts Name Role Phone Ramón Alvarado MD Primary Care Provider + [phone] Albino Hartman MD Unavailable [phone] Allergies No known active allergies Medications aluminum [...] your insurance plan, you may purchase Gaviscon [id number]-zohukts. 355 mL 02/09/20 23 Active HYDROcodone-acet aminophen (NORCO) 5-325 mg per tabletIndication s:Pain Take 1-2 tablets by mouth every 4 (four) hours as needed for pain 25 tablet 02/09/20 23 Active polyethylene glycol (MIRALAX) 17 gram/dose powder Take 17 g by mouth daily As needed for constipation or if no bowel movement for over 1 day. May buy [id number] if inadequate coverage by insurance plan. Take [...] Screening 2012 Regular Well Visit/Exam 18-64 2012 HPV Vaccines (1 - 3-dose SCD M series) 2021 Covid-19 Vaccine (3 - 2023-2 5 season) 2024 09/18/2021, 05/28/2021 Influenza Vaccine (#1) 2025 08/11/2022 DTaP/Tdap/Td Vaccine (2 - Td or Tdap) 08/11/2032 08/11/2022 Pneumococcal vaccine <65 Aged Out No longer eligible based on patient's age to complete this topic Medical Devices Implanted Type Area Insurance Business Analyst Device Identifier Shelf Expiration Date Model / Serial / Lot vBrand Medical Ivisys [employer] Hem-O-Wally Ligate Nonabsorbable Cartridge Large [employer] Heart Latex Free [id number] - [id number] Implanted:Qty: 1 on 02/08/2023 by Albino Hartman MD at [facility] N/A: Abdomen [employer] [id number] / / Insurance [employer] ACCESS CHOICE Care Teams Professor Of Communication Arts Relationship Specialty Start Date End Date Ramón Alvarado MD PCP - General Internal Medicine 01/29/23 Albino Hartman MD Consulting Physician General Surgery 02/08/23
[2025-04-07 16:57] LABS: Beta HCG Quantitative 5.31 mIU/ML
== END 2025-04-07 15:22 | disposition home or self-care (01) ==
LOC: ANHLAB 15:22
PROVIDERS: Visit Provider Nurse Practitioner Family
DX: O03.9 Complete or unspecified spontaneous abortion without complication (principal)
CPT/HCPCS: 36415; 84702